=== PATIENT | female | born 1965 | race Caucasian/White ===

== ENCOUNTER 2019-06-05 17:51 | Emergency (ER) | payer OTHER, SELFPAY ==
[2019-06-05 18:00] VITALS: BP 144/83; PULSE 85; RESP 16; TEMP 36.4; O2SAT 99
--- NOTE | 2019-06-05 18:00 | ED.GENADULT ---
HPI - General Adult General Chief complaint: Wound/Laceration Stated complaint: breast spot and spot on rt elbow Time Seen by Provider: 06/05/19 18:15 Source: patient Mode of arrival: ambulatory Limitations: no limitations History of Present Illness HPI narrative: 53-year-old female patient presents to the [facility] with complaints of redness, swelling and pain to the right breast for the past 3 to 4 days. Denies any fevers that she is aware of. Patient denies any trauma to the breast that she is aware of. Patient states unsure if she has been bitten by anything. Denies any chest pain, shortness of breath or coughing. Related Data Home Medications Medication Instructions Recorded Confirmed duloxetine 60 mg PO BID 03/18/19 06/05/19 gabapentin 800 mg PO QID 03/18/19 06/05/19 mirtazapine 15 mg PO HS 03/18/19 06/05/19 pantoprazole 40 mg PO BID 03/18/19 06/05/19 Allergies Allergy/AdvReac Type Severity Reaction Status Date / Time codeine Allergy Rash Verified 06/05/19 18:17 Penicillins Allergy Unknown Verified 06/05/19 18:17 Review of Systems Review of Systems: Narrative: CONSTITUTIONAL: Denies fever, chills, or sweats. EYES: Denies visual changes, redness, or discharge. ENT: Denies rhinorrhea, congestion, sore throat, or otalgia. CARDIOVASCULAR: Denies chest pain, palpitations, or edema. RESPIRATORY: Denies cough or dyspnea. GASTROINTESTINAL: Denies abdominal pain, nausea, vomiting, or diarrhea. GENITOURINARY: Denies dysuria or hematuria. SKIN: Denies rash or itching. Positive redness, swelling and pain to right breast x3 to 4 days. MUSCULOSKELETAL: Denies back pain, joint pain, or myalgia. NEUROLOGIC: Denies headache, numbness, or weakness. PSYCHIATRIC: Denies anxiety or depression. [facility] Past Medical History Medical History Allergies Arthritis Asthma COPD (chronic obstructive pulmonary disease) Depression Failure of rotator cuff repair GERD (gastroesophageal reflux disease) History of frequent headaches Surgical History Surgical History H/O shoulder surgery Social History Social History Smoking packs per day: 1 Smoking cigarettes per day: 20.0 Years smoked: 30 Smoking pack-years: 30.00 Smoking status: Current every day smoker Alcohol intake: never Comments At the time of my signature I agree with nursing past medical history, surgical, social, and family history. There is no relevant family history pertinent to the presenting complaint. Exam Narrative: Exam Narrative: GENERAL: Well-appearing, well-nourished, and in no acute distress. HEAD: Normocephalic, atraumatic. EYES: PERRLA and EOMI. ENT: Nares clear, no rhinorrhea or epistaxis. Mucous membranes moist. NECK: Supple. No lymphadenopathy CHEST: Clear to auscultation. No respiratory distress. HEART: Regular rate and rhythm. No murmur heard. Normal peripheral pulses. ABDOMEN: Soft, nontender, nondistended, normal active bowel sounds. EXTREMITIES: Normal range of motion. No edema. SKIN: Warm, dry, no rash. Patient's right breast with redness, warmth noted over the majority of the breast. There is a hardening area around the nipple but no obvious drainable site noted at this time. There is no drainage from the nipple at this time. NEURO: No focal deficits. Alert and oriented x3. Course Vital Signs Vital signs: Vital Signs Temperature 36.4 C 06/05/19 18:00 Pulse Rate 85 06/05/19 18:00 Respiratory Rate 16 06/05/19 18:00 Blood Pressure 144/83 H 06/05/19 18:00 Pulse Oximetry 99 06/05/19 18:00 Temperature 36.4 C 06/05/19 18:00 Pulse Rate 85 06/05/19 18:00 Respiratory Rate 16 06/05/19 18:00 Blood Pressure 144/83 H 06/05/19 18:00 Pulse Oximetry 99 06/05/19 18:00 Vital signs reviewed. The patient has been informed that they may have pre
== END 2019-06-05 18:32 | disposition home or self-care (01) ==
PROVIDERS: Emergency Provider Nurse Practitioner Family
DX: N61.0 Mastitis without abscess (principal); F17.210 Nicotine dependence, cigarettes, uncomplicated; M19.90 Unspecified osteoarthritis, unspecified site; J44.9 Chronic obstructive pulmonary disease, unspecified; K21.9 Gastro-esophageal reflux disease without esophagitis
CPT/HCPCS: 99213; G0463